=== PATIENT | female | born 1980 | race Caucasian/White ===

== ENCOUNTER → 2021-06-11 | Outpatient (CLI) | payer OTHER ==
[~2021-06-11] MED LIST: BUSPAR 10MG10 MG PO; COLACE 100MG C100 MG PO; FENOFIBRATE50 MG PO; IBUPROFEN600 MG PO; NEURONTIN300 MG PO; NORCO 7.5-3251 EACH PO; OMNICEF 300 MG300 MG PO; SEROQUEL100 MG PO
[2021-06-14 07:10] LABS: NEISSERIA GONORRHOEAE, NAA Negative (Negative)
== END ==
LOC: LAB 15:17
PROVIDERS: Physician Assistant
DX: F11.20 Opioid dependence, uncomplicated (principal); F32.A Depression, unspecified; F41.9 Anxiety disorder, unspecified; G47.00 Insomnia, unspecified; M15.9 Polyosteoarthritis, unspecified; M54.50 Low back pain, unspecified
CPT/HCPCS: 80307

== ENCOUNTER → 2021-06-22 | Outpatient (CLI) | payer OTHER | LOC: LAB 13:51 | PROVIDERS: Physician Assistant | DX: F11.20 Opioid dependence, uncomplicated (principal); F32.A Depression, unspecified; F41.9 Anxiety disorder, unspecified | CPT/HCPCS: 80307 ==